=== PATIENT | female | born 1950 | race Caucasian/White ===

== ENCOUNTER 2022-10-15 11:29 | Emergency (ER) | payer OTHER, MEDICARE ==
[~2022-10-15] VITALS: Ht 152.4 cm; Wt 47.6 kg
[2022-10-15 11:53] VITALS: O2SAT 100
[2022-10-15] MEDS ORDERED: ANAPROX DS550 MG PO (14:02)
== END 2022-10-15 14:42 | disposition home or self-care (01) ==
LOC: EDBD 11:32 → ER 11:32
DX: M79.672 Pain in left foot (principal); S93.692A Other sprain of left foot, initial encounter; X50.1XXA Overexertion from prolonged static or awkward postures, initial encounter; Y93.01 Activity, walking, marching and hiking; Y92.89 Other specified places as the place of occurrence of the external cause
CPT/HCPCS: 99283